=== PATIENT | male | born 1970 | race Caucasian/White ===

== ENCOUNTER 2021-08-02 06:52 | Emergency (ER) | payer BC ==
[2021-08-02] MEDS ORDERED: Metoclopramide 10 MG/2 ML SDV IVPUSH ONE (07:59)
[2021-08-02 08:32] LABS: BLOOD UREA NITROGEN,BUN 13 mg/dL (7.0-18.0); CARBON DIOXIDE,CO2 27.2 mmol/L (21.0-32.0); CHLORIDE,CL 103 mmol/L (98-107); GLUCOSE RANDOM 96 mg/dL (74-106); POTASSIUM,K 4.2 mmol/L (3.5-5.1); SODIUM,NA 138 mmol/L (136-148)
[2021-08-02] MEDS ORDERED: Sodium Chloride 0.9% 1,000 ML IV ONE ×2 (10:49→10:58)
[2021-08-02] MEDS ORDERED: Acetaminophen 500 MG Tab PO ONE (10:58)
[2021-08-02] MEDS ORDERED: Iopamidol 755 Mg/ML 100 ML Bottle IVPUSH ONE (16:32)
== END 2021-08-02 12:45 | disposition home or self-care (01) ==
LOC: MW.ED 06:52
DX: R51.9 Headache, unspecified (principal); Z88.8 Allergy status to other drugs, medicaments and biological substances
CPT/HCPCS: 36415; 70450; 70496; 70498; 80053; 85025; 85610; 96374; 99284; A9270; J2765; J7030; Q9967; 99283